=== PATIENT | female | born 1965 | race Caucasian/White ===

== ENCOUNTER → 2016-09-25 | Outpatient (CLI) | payer BC ==
--- NOTE | 2016-09-25 15:21 | XR ---
EXAMINATION TYPE: XR abdomen 1V DATE OF EXAM: 09/25/2016 3:16 PM COMPARISON: NONE INDICATION: Hematuria TECHNIQUE: Single view abdomen FINDINGS: There is a normal bowel gas pattern. Psoas margins are normal. No organomegaly is present. Cholecystectomy clips are present. No suspicious mass effect is evident. No suspicious calcifications are evident. Phleboliths are within the pelvis. Metallic piercing at the lower film edge. IMPRESSION: 1. No acute changes to account for gross hematuria.
== END | disposition home or self-care (01) ==
LOC: RADXRMAIN 14:56
PROVIDERS: ATTEND Nurse Practitioner Family
DX: R31.9 Hematuria, unspecified (principal)
CPT/HCPCS: 74000

== ENCOUNTER → 2017-04-01 | Outpatient (CLI) | payer BC ==
--- NOTE | 2017-04-02 08:50 | MM ---
Reason for exam: screening (asymptomatic). Last mammogram was performed 1 year ago. History: Patient is postmenopausal. Benign excisional biopsy of the left breast, January 2011. Physical Findings: A clinical breast exam by your physician is recommended on an annual basis and results should be correlated with mammographic findings. MG 3D Screening Mammo W/Cad Bilateral CC and MLO view(s) were taken. Prior study comparison: March 24, 2016, bilateral MG 3d screening mammo w/cad. June 15, 2015, left breast MG 3d diag mammo w/cad LT. There are scattered fibroglandular densities. There is no discrete abnormality. No significant changes when compared with prior studies. ASSESSMENT: Negative, BI-RAD 1 RECOMMENDATION: Routine screening mammogram of both breasts in 1 year.
== END | disposition home or self-care (01) ==
LOC: RADMAMWWP 11:07
PROVIDERS: ATTEND Obstetrics & Gynecology
DX: Z12.31 Encounter for screening mammogram for malignant neoplasm of breast (principal)
CPT/HCPCS: 77063; G0202

== ENCOUNTER → 2017-07-06 | Outpatient (CLI) | payer BC ==
--- NOTE | 2017-07-06 17:51 | XR ---
EXAMINATION TYPE: XR hand complete LT DATE OF EXAM: 07/06/2017 COMPARISON: NONE HISTORY: 51-year-old female other bursal cyst, bump on second left PIP joint TECHNIQUE: 3 views FINDINGS: No acute fracture, subluxation, or dislocation. Joint spaces throughout are maintained. No periostitis or osteolysis. IMPRESSION: No acute osseous abnormality seen.
== END | disposition home or self-care (01) ==
LOC: RADXRMAIN 13:49
PROVIDERS: ATTEND Nurse Practitioner Family
DX: M71.342 Other bursal cyst, left hand (principal)

== ENCOUNTER → 2018-03-24 | Outpatient (CLI) | payer BC ==
--- NOTE | 2018-03-24 14:52 | US ---
EXAMINATION TYPE: US venous doppler duplex LE LT DATE OF EXAM: 03/24/2018 2:41 PM COMPARISON: NONE CLINICAL HISTORY: M79.662 PAIN IN LT LOWER LEG. Pt states swelling/tightness left leg SIDE PERFORMED: Left TECHNIQUE: The lower extremity deep venous system is examined utilizing real time linear array sonog ivett with graded compression, doppler sonography and color-flow sonography. VESSELS IMAGED: External Iliac Vein (EIV) Common Femoral Vein Deep Femoral Vein Greater Saphenous Vein * Femoral Vein Popliteal Vein Small Saphenous Vein * Proximal Calf Veins (* superficial vessels) Left Leg: Negative for DVT Results called to Nelia at Dr's office at time of exam Grayscale, color doppler, spectral doppler imaging performed of the deep veins of the left lower extr emity. There is normal flow, compressibility, vascular waveforms. IMPRESSION: No ultrasound evidence for acute DVT in the left lower extremity.
== END | disposition home or self-care (01) ==
LOC: RADUSWWP 14:24
PROVIDERS: ATTEND Family Medicine
DX: M79.662 Pain in left lower leg (principal)

== ENCOUNTER → 2018-04-29 | Outpatient (CLI) | payer BC ==
--- NOTE | 2018-04-29 14:09 | MM ---
Reason for exam: screening (asymptomatic). Last mammogram was performed 1 year and 1 month ago. History: Patient is postmenopausal. Benign excisional biopsy of the left breast, January 2011. Took hormonal contraceptives for 10 years. Physical Findings: A clinical breast exam by your physician is recommended on an annual basis and results should be correlated with mammographic findings. MG 3D Screening Mammo W/Cad Bilateral CC and MLO view(s) were taken. Prior study comparison: April 01, 2017, bilateral MG 3d screening mammo w/cad. March 24, 2016, bilateral MG 3d screening mammo w/cad. The breast tissue is heterogeneously dense. This may lower the sensitivity of mammography. There is no discrete abnormality. ASSESSMENT: Negative, BI-RAD 1 RECOMMENDATION: Routine screening mammogram of both breasts in 1 year.
== END | disposition home or self-care (01) ==
LOC: RADMAMWWP 07:24
PROVIDERS: ATTEND Family Medicine
DX: Z12.31 Encounter for screening mammogram for malignant neoplasm of breast (principal)
CPT/HCPCS: 77063; 77067

== ENCOUNTER → 2019-05-05 | Outpatient (CLI) | payer OTHER ==
--- NOTE | 2019-05-06 13:56 | MM ---
Reason for exam: screening (asymptomatic). Last mammogram was performed 1 year ago. History: Patient is postmenopausal. Benign excisional biopsy of the left breast, January 2011. Took hormonal contraceptives for 10 years. Physical Findings: A clinical breast exam by your physician is recommended on an annual basis and results should be correlated with mammographic findings. MG 3D Screening Mammo W/Cad Bilateral CC and MLO view(s) were taken. Prior study comparison: April 29, 2018, bilateral MG 3d screening mammo w/cad. April 01, 2017, bilateral MG 3d screening mammo w/cad. There are scattered fibroglandular densities. No significant changes when compared with prior studies. ASSESSMENT: Benign, BI-RAD 2 RECOMMENDATION: Routine screening mammogram of both breasts in 1 year.
== END | disposition home or self-care (01) ==
LOC: RADMAMWWP 09:00
PROVIDERS: ATTEND Obstetrics & Gynecology
DX: Z12.31 Encounter for screening mammogram for malignant neoplasm of breast (principal)
CPT/HCPCS: 77063; 77067

== ENCOUNTER 2019-07-29 09:47 | Emergency (ER) | payer OTHER ==
[2019-07-29 09:53] VITALS: TEMP 97.8
[2019-07-29] MEDS ORDERED: SODIUM CHLORIDE 0.9% 1,000 ML IV STA ×2 (10:25)
--- NOTE | 2019-07-29 10:27 | ED ---
Abdominal Pain HPI - General Chief Complaint: Abdominal Pain Stated Complaint: lower right stabbing pain Time Seen by Provider: 07/29/19 10:01 Source: patient Mode of arrival: ambulatory Limitations: no limitations - History of Present Illness Initial Comments: 53-year-old female presenting for right lower quadrant abdominal pain. Patient states she had a cramping pain. He can the right lower quadrant she states that has to days as the more sharp in nature increasing with movement or any activity. Patient presented to her primary care provider office today and was sent to the emergency department to rule out appendicitis. Patient's been eating denies fevers. Denies vomiting diarrhea or nausea. Patient denies any vaginal bleeding. Remaining review of system negative upon arrival patient appears well signs of acute distress. - Related Data Home Medications Medication Instructions Recorded Confirmed Cranberry Fruit Extract [Cranberry] 500 mg PO DAILY 06/11/16 07/29/19 Evening Needham Oil 500 mg PO DAILY 06/11/16 07/29/19 Cholecalciferol (Vitamin D3) 2,000 unit PO DAILY 07/29/19 07/29/19 [Vitamin D3] Furosemide [Lasix] 20 mg PO DAILY PRN 07/29/19 07/29/19 Naproxen [Naprosyn] 500 mg PO Q12HR PRN 07/29/19 07/29/19 Potassium 99 mg PO DAILY 07/29/19 07/29/19 Turmeric Root Extract [Turmeric] 500 mg PO DAILY 07/29/19 07/29/19 Previous Rx's Medication Instructions Recorded Metoprolol Succinate [Toprol XL] 25 mg PO DAILY #30 tab 06/13/16 Allergies Allergy/AdvReac Type Severity Reaction Status Date / Time morphine AdvReac Severe Itching Verified 07/29/19 11:20 latex AdvReac dry skin Verified 07/29/19 11:20 scopolamine AdvReac Unknown Verified 07/29/19 11:20 Review of Systems ROS Statement: Those systems with pertinent positive or pertinent negative responses have been documented in the HPI. ROS Other: All systems not noted in ROS Statement are negative. Past Medical History Past Medical History: Hypertension Additional Past Medical History / Comment(s): varicose veins, raynauds History of Any Multi-Drug Resistant Organisms: None Reported Past Surgical History: Section, Cholecystectomy, Tubal Ligation Additional Past Surgical History / Comment(s): deviated septum, colonoscopy Past Anesthesia/Blood Transfusion Reactions: Motion Sickness Additional Past Anesthesia/Blood Transfusion Reaction / Comment(s): Pt report reaction to Scopolamine patches. Past Psychological History: No Psychological Hx Reported Smoking Status: Never smoker Past Alcohol Use History: Occasional Past Drug Use History: None Reported - Past Family History Father Family Medical History: Diabetes Mellitus Mother Family Medical History: Hyperlipidemia Additional Family Medical History / Comment(s): Alzhimiers. General Exam - General Exam Comments Initial Comments: General: The patient is awake and alert, in no distress Eye: +3 mm pupils are equal, round and reactive to light, extra-ocular movements are intact. No nystagmus. There is normal conjunctiva bilaterally. No signs of icterus. Ears, nose, mouth and throat: There are moist mucous membranes and no oral lesions. Neck: The neck is supple, there is no tenderness or JVD. Cardiovascular: There is a regular rate and rhythm. No murmur, rub or gallop is appreciated. Respiratory: Lungs are clear to auscultation, respirations are non-labored, breath sounds are equal. No wheezes, stridor, rales, or rhonchi. Gastrointestinal: Soft, non-distended, RLQ tenderness to palpation of the abdomen without masses or organomegaly noted. There is no rebound or guarding present. Musculoskeletal: Normal ROM, no tenderness. Strength 5/5. Sensation intact. Radial pulses equal bilaterally 2+. Neurological: A&O x 3. CN II-XII intact grossly, There are no obvious motor or sensory deficits. Coordination appears grossly intact. Speech is normal. Skin: Skin is warm and dry and no rashes or lesions are noted. Psychiatric: Cooperative, appropriate mood & affect, normal judgment. Limitations: no limitations Course Vital Signs 07/29/19 07/29/19 09:50 13:46 Temperature 97.8 F Pulse Rate 77 96 Respiratory 18 20 Rate Blood Pressure 169/102 147/88 O2 Sat by Pulse 100 100 Oximetry Medical Decision Making - Medical Decision Making 53-year-old female presenting today for chief complaint of right lower quadrant tenderness. CT negative for appendicitis although demonstrated ovarian cyst. With skin free fluid in the pelvis. Ultram obtained at this time revealed complex right ovarian cyst. Patient does not appears in distress. Laboratory studies stable. Case discussed [facility] Dr. Romero including imaging findings I discussed the nature of abnormalities with patient we feel patient is stable for discharge with outpatient follow-up with Dr. Sosa. Patient agreeable to care plan and discharge. Return parameters discussed at length. - Lab Data Result diagrams: 07/29/19 10:55 07/29/19 10:55 Lab Results 07/29/19 07/29/19 07/29/19 Range/Units 10:45 10:55 10:55 WBC 9.4 (3.8-10.6) k/uL RBC 4.46 (3.80-5.40) m/uL Hgb 14.1 (11.4-16.0) gm/dL Hct 41.3 (34.0-46.0) % MCV 92.6 (80.0-100.0) fL MCH 31.5 (25.0-35.0) pg MCHC 34.0 (31.0-37.0) g/dL RDW 12.9 (11.5-15.5) % Plt Count 265 (150-450) k/uL Neutrophils % 77 % Lymphocytes % 17 % Monocytes % 4 % Eosinophils % 1 % Basophils % 0 % Neutrophils # 7.3 (1.3-7.7) k/uL Lymphocytes # 1.6 (1.0-4.8) k/uL Monocytes # 0.4 (0-1.0) k/uL Eosinophils # 0.1 (0-0.7) k/uL Basophils # 0.0 (0-0.2) k/uL Sodium 138 (137-145) mmol/L Potassium 4.6 (3.5-5.1) mmol/L Chloride 104 (98-107) mmol/L Carbon Dioxide 24 (22-30) mmol/L Anion Gap 10 mmol/L BUN 10 (7-17) mg/dL Creatinine 0.71 (0.52-1.04) mg/dL Est GFR (CKD-EPI)AfAm >90 (>60 ml/min/1.73 sqM) Est GFR (CKD-EPI)NonAf >90 (>60 ml/min/1.73 sqM) Glucose 129 H (74-99) mg/dL Calcium 9.9 (8.4-10.2) mg/dL Total Bilirubin 1.1 (0.2-1.3) mg/dL AST 32 (14-36) U/L ALT 34 (4-34) U/L Alkaline Phosphatase 51 (38-126) U/L Total Protein 8.4 H (6.3-8.2) g/dL Albumin 4.8 (3.5-5.0) g/dL Lipase 88 (23-300) U/L Urine Color Light Yellow Urine Appearance Clear (Clear) Urine pH 6.0 (5.0-8.0) Ur Specific Fowler 1.002 (1.001-1.035) Urine Protein Negative (Negative) Urine Glucose (UA) Negative (Negative) Urine Ketones Negative (Negative) Urine Blood Negative (Negative) Urine Nitrite Negative (Negative) Urine Bilirubin Negative (Negative) Urine Urobilinogen <2.0 (<2.0) mg/dL Ur Leukocyte Esterase Negative (Negative) Disposition Clinical Impression: Right ovarian cyst, RLQ abdominal pain Disposition: HOME SELF-CARE Condition: Good Instructions (If sedation given, give patient instructions): Ovarian Cyst (ED), Ruptured Ovarian Cyst (ED) Additional Instructions: Please use medication as discussed. Please follow-up with family doctor in the next 2 days, and your OBGYN Dr. Sosa. Please return to emergency room if the symptoms increase or worsen or for any other concerns. Is patient prescribed a controlled substance at d/c from ED?: No Referrals: Ayesha Snyder MD [Primary Care Provider] - 1-2 days Rhea Sosa DO [Doctor of Osteopathic Medicine] - 1-2 days Time of Disposition: 13:56
[2019-07-29 11:12] LABS: Basophils % (A) 0 %; Eosinophils # (A) 0.1 k/uL (0-0.7); Eosinophils % (A) 1 %; HCT 41.3 % (34.0-46.0); HGB 14.1 gm/dL (11.4-16.0); Lymphocytes # (A) 1.6 k/uL (1.0-4.8); Lymphocytes % (A) 17 %; MCH 31.5 pg (25.0-35.0); MCV 92.6 fL (80.0-100.0); Mean Platelet Volume 8.7; Monocytes # (A) 0.4 k/uL (0-1.0); Monocytes % (A) 4 %; Neutrophils # (A) 7.3 k/uL (1.3-7.7); Neutrophils % (A) 77 %; Platelet Count 265 k/uL (150-450); RBC 4.46 m/uL (3.80-5.40); RDW 12.9 % (11.5-15.5); WBC 9.4 k/uL (3.8-10.6)
[2019-07-29 11:13] LABS: Appearance,Urine Clear (Clear); Bilirubin,Urine Negative (Negative); Blood,Urine Negative (Negative); Color,Urine Light Yellow; Glucose,Urine (UA) Negative (Negative); Ketones,Urine Negative (Negative); Leukocyte Esterase,Urine Negative (Negative); Nitrite,Urine Negative (Negative); Protein,Urine Negative (Negative); Specific Gravity,Urine 1.002 (1.001-1.035); Urobilinogen,Urine <2.0 mg/dL (<2.0)
[2019-07-29 11:18] LABS: ALT 34 U/L (4-34); AST 32 U/L (14-36); African American GFR (CKD) >90 (>60 ml/min/1.73 sqM); Albumin 4.8 g/dL (3.5-5.0); Alkaline Phosphatase 51 U/L (38-126); Anion Gap 10 mmol/L; Blood Urea Nitrogen 10 mg/dL (7-17); Calcium 9.9 mg/dL (8.4-10.2); Carbon Dioxide 24 mmol/L (22-30); Chloride 104 mmol/L (98-107); Glucose 129 mg/dL (74-99); Non-African American GFR(CKD) >90 (>60 ml/min/1.73 sqM); Potassium 4.6 mmol/L (3.5-5.1); Sodium 138 mmol/L (137-145); Total Bilirubin 1.1 mg/dL (0.2-1.3); Total Protein 8.4 g/dL (6.3-8.2)
--- NOTE | 2019-07-29 12:11 | CT ---
EXAMINATION TYPE: CT abdomen pelvis w con DATE OF EXAM: 07/29/2019 COMPARISON: HISTORY: Pelvic pain CT DLP: 1113.9 mGycm CONTRAST: CT scan of the abdomen and pelvis is performed without Oral Contrast and with IV Contrast, patient in jected with 100 mL of Isovue 300. FINDINGS: LUNG BASES-: No visible nodule. No infiltrate. LIVER/GB: Hepatic steatosis noted gallbladder surgically absent. No space occupying hepatic lesion. Biliary tree is of normal caliber. PANCREAS: No inflammation. No distinct mass. SPLEEN: No splenic enlargement. No lesion seen. ADRENALS: No nodule. No thickening. KIDNEYS/BLADDER: No hydronephrosis. No nephrolithiasis. No distinct renal mass. Urinary bladder g rossly unremarkable. BOWEL: Normal appendix. Normal bowel caliber. No inflammation. GENITAL ORGANS: Small amount of free fluid adjacent to the right ovary as well as within the right l ower quadrant may be related to recently ruptured ovarian cyst. No adnexal masses are seen at this ti me. 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 LYMPH NODES: No greater than 1cm abdominal or pelvic lymph nodes are appreciated. AORTA: No significant abnormality. OSSEOUS STRUCTURES: No significant abnormality is seen. OTHER: No significant additional abnormality is seen. IMPRESSION: 1. Small amount of free fluid adjacent to the right ovary as well as within the right lower quadrant may be related to recently ruptured ovarian cyst. 2. Normal appendix. 3. Fatty liver.
--- NOTE | 2019-07-29 13:42 | US ---
EXAMINATION TYPE: US transvaginal DATE OF EXAM: 07/29/2019 COMPARISON: CT CLINICAL HISTORY: rlq pain. RLQ pain x 1 week; last bowel movement 4 days ago; tubal ligation, C Sect ion x 1, endometrial ablation age 48; TECHNIQUE: Transvaginal (TV). Transvaginal sonographic images were medically necessary since empty b ladder noted. Date of LMP: age 48 EXAM MEASUREMENTS: Uterus: 9.4 x 6.5 x 4.8 cm Endometrial Stripe: 0.95 cm upper right endometrium and fluid filled endometrium upper left Right Ovary: 4.5 x 3.3 x 3.7 cm Left Ovary: 2.7 x 1.7 x 1.5 cm 1. Uterus: Anteverted; multiple Nabothian Cysts in cervix with largest=1.3 x 1.2 x 0.8cm; multiple o su/round hypoechoic solid masses (uterine fibroids) with largest mid upper left = 1.3 x 1.3 x 1.3cm 2. Endometrium: bicornuate appearance with abnormally thickened right endometrium and fluid filled l eft endometrium =2.1 x 2.1 x 2.6cm with thin endometrial wall. 3. Right Ovary: enlarged with large complex cyst 2.8 x 2.8 x 3.0cm and containing mural wall change s 4. Left Ovary: couple of simple cysts with larger = 1.2 x 1.2 x 1.0cm Spectral, color and waveform Doppler imaging shows good arterial and venous flow within the ovaries ; there is no evidence for ovarian torsion. 5. Bilateral Adnexa: wnl 6. Posterior cul-de-sac: small amount of free fluid = 1.5 x 3.4 x 1.5cm. IMPRESSION: 1. Endometrium may have a bicornuate appearance or a thick partial septum. MRI is more sensitive for better delineation. 2. Complex cystic area within the right ovary measuring roughly 2.8 cm in diameter.
[2019-07-29 13:49] VITALS: BP 147/88; PULSE 96; RESP 20
[2019-07-29] MEDS ORDERED: KETOROLAC 30 MG/ML 1 ML VIAL IVP STA (14:18)
== END 2019-07-29 14:26 | disposition home or self-care (01) ==
LOC: EC 09:47
DX: N83.201 Unspecified ovarian cyst, right side (principal); I10 Essential (primary) hypertension; Z88.5 Allergy status to narcotic agent; Z88.8 Allergy status to other drugs, medicaments and biological substances; Z91.040 Latex allergy status; Z79.899 Other long term (current) drug therapy; Z90.49 Acquired absence of other specified parts of digestive tract; Z98.51 Tubal ligation status
CPT/HCPCS: 36415; 80053; 83690; 85025; 81003; 87040; 93975; 76830; 74177; 99284; 96374; 96361 ×3; J1885; Q9967

== ENCOUNTER → 2020-05-09 | Outpatient (CLI) | payer OTHER ==
--- NOTE | 2020-05-10 11:12 | MM ---
Reason for exam: screening (asymptomatic). Last mammogram was performed 1 year ago. History: Patient is postmenopausal. Benign excisional biopsy of the left breast, January 2011. Took hormonal contraceptives for 10 years. Taking estrogen for 7 months. Physical Findings: A clinical breast exam by your physician is recommended on an annual basis and results should be correlated with mammographic findings. MG 3D Screening Mammo W/Cad Bilateral CC and MLO view(s) were taken. Prior study comparison: May 05, 2019, bilateral MG 3d screening mammo w/cad. April 29, 2018, bilateral MG 3d screening mammo w/cad. There are scattered fibroglandular densities. There is no discrete abnormality. No significant changes when compared with prior studies. ASSESSMENT: Negative, BI-RAD 1 RECOMMENDATION: Routine screening mammogram of both breasts in 1 year.
== END | disposition home or self-care (01) ==
LOC: RADMAMWWP 09:54
PROVIDERS: ATTEND Obstetrics & Gynecology
DX: Z12.31 Encounter for screening mammogram for malignant neoplasm of breast (principal)
CPT/HCPCS: 77063; 77067

== ENCOUNTER → 2021-06-06 | Outpatient (CLI) | payer BC ==
--- NOTE | 2021-06-10 10:23 | MM ---
Reason for exam: screening (asymptomatic). Last mammogram was performed 1 year and 1 month ago. History: Patient is postmenopausal. Benign excisional biopsy of the left breast, January 2011. Took hormonal contraceptives for 10 years. Taking estrogen for 7 months. Physical Findings: A clinical breast exam by your physician is recommended on an annual basis and results should be correlated with mammographic findings. MG 3D Screening Mammo W/Cad Bilateral CC and MLO view(s) were taken. Prior study comparison: May 09, 2020, bilateral MG 3d screening mammo w/cad. May 05, 2019, bilateral MG 3d screening mammo w/cad. April 29, 2018, bilateral MG 3d screening mammo w/cad. There are scattered fibroglandular densities. No significant changes when compared with prior studies. ASSESSMENT: Negative, BI-RAD 1 RECOMMENDATION: Routine screening mammogram of both breasts in 1 year.
== END | disposition home or self-care (01) ==
LOC: RADMAMWWP 12:07
PROVIDERS: ATTEND Family Medicine
DX: Z12.31 Encounter for screening mammogram for malignant neoplasm of breast (principal)
CPT/HCPCS: 77063; 77067

== ENCOUNTER → 2021-08-21 | Outpatient (CLI) | payer OTHER ==
--- NOTE | 2021-08-21 10:43 | BD ---
EXAMINATION TYPE: Axial Bone Density DATE OF EXAM: 08/21/2021 COMPARISON: Prior DEXA bone scan 2015 CLINICAL HISTORY: Postmenopausal female Height: 61 Weight: 150.6 FRAX RISK QUESTIONS: Alcohol (3 or more units per day): no Family History (Parent hip fracture): no Glucocorticoids (More than 3mos): no (Ex: prednisone, prednisolone, methylprednisolone, dexamethasone, and hydrocortisone). History of Fracture in Adulthood: no Secondary Osteoporosis: 1. Type 1 Diabetes: no 2. Hyperthyroidism: no 3. Menopause before 45: no 4. Malnutrition: no 5. Chronic liver disease: no Rheumatoid Arthritis: no Current Tobacco Use: no RISK FACTORS HISTORY OF: Surgery to Spine/Hip(right/left)/Wrist (right/left): no Family History of Osteoporosis: no Active: yes Diet low in dairy products/other sources of calcium: yes Postmenopausal woman: yes Take estrogen and/or progesterone medications: yes How lon years Lost more than 2 inches in height since high school: no MEDICATIONS: estrogen, blood pressure med Additional History: EXAM MEASUREMENTS: Bone mineral densitometry was performed using the [employer] System. Bone mineral density as measured about the Lumbar spine is: ----- L1-L4(G/cm2): 1.325 T Score Values are as follows: ----- L2: 0.7 ----- L3: 1.7 ----- L4: 1.7 ----- L1-L4: 1.2 Bone mineral density has: decreased -0.9 % since study of: 03.24.2016 Bone mineral density about the R hip (g/cm2): 1.018 Bone mineral density about the L hip (g/cm2): 1.079 T Score values are as follows: -----R Neck: -0.1 -----L Neck: 0.3 -----R Total: 0.0 -----L Total: 0.0 Bone mineral density has: decreased -7.5 % since study of: 03.24.2016 IMPRESSION: Normal (Values between +1 and -1 indicate normal bone mass). Consider repeating this study in 5 year s or sooner if there is some new clinical indication. NOTE: T-SCORE=SD OF THE YOUNG ADULT MEAN.
== END | disposition home or self-care (01) ==
LOC: RADBDWWP 08:33
PROVIDERS: ATTEND Obstetrics & Gynecology
DX: N95.1 Menopausal and female climacteric states (principal)
CPT/HCPCS: 77080

== ENCOUNTER → 2022-07-17 | Outpatient (CLI) | payer OTHER ==
--- NOTE | 2022-07-18 08:21 | MM ---
Reason for Exam: Screening (asymptomatic). Last mammogram was performed 1 year(s) and 2 month(s) ago. Patient History: Menarche at age 11. First Full-Term at age 25. Left ovary removed at age 54. Right ovary removed at age 54. Hysterectomy at age 54. Postmenopausal. Patient has history of breast feeding. Currently using Estrogen, for 7 months. Patient used Hormonal Contraceptives for 10 years. 01/2011, Benign Excisional Biopsy on the left side. Risk Values: Erin 5 year model risk: 1.7%. NCI Lifetime model risk: 10.2%. Prior Study Comparison: 04/01/2017 Bilateral Screening Mammogram, [facility]. 04/29/2018 Bilateral Screening Mammogram, [facility]. 05/05/2019 Bilateral Screening Mammogram, [facility]. 05/09/2020 Bilateral Screening Mammogram, [facility]. 06/06/2021 Bilateral Screening Mammogram, [facility]. Tissue Density: There are scattered fibroglandular densities. Findings: Analyzed By CAD. There is no suspicious group of microcalcifications or new suspicious mass in either breast. Overall Assessment: Negative, BI-RAD 1 Management: Screening Mammogram of both breasts in 1 year. A clinical breast exam by your physician is recommended on an annual basis and results should be correlated with mammographic findings. Electronically signed and approved by: James Dean M.D.
== END | disposition home or self-care (01) ==
LOC: RADMAMWWP 07:41
PROVIDERS: ATTEND Obstetrics & Gynecology
DX: Z12.31 Encounter for screening mammogram for malignant neoplasm of breast (principal); Z78.0 Asymptomatic menopausal state; Z98.890 Other specified postprocedural states
CPT/HCPCS: 77063; 77067

== ENCOUNTER 2023-03-03 08:49 | Day surgery (SDC) | payer OTHER ==
[2023-03-03 09:09] VITALS: TEMP 97.2
[2023-03-03] MEDS ORDERED: ONDANSETRON 4 MG/2 ML VIAL IVP PRN (09:12)
[2023-03-03] MEDS ORDERED: LIDOCAINE 1% (10MG/ML) FOR IV START INTRADERMA PRN (09:12)
[2023-03-03] MEDS ORDERED: LACTATED RINGERS 1,000 ML IV SCH (09:12)
[2023-03-03] MEDS ORDERED: LACTATED RINGERS 1,000 ML IV ONE (09:12)
[2023-03-03] MEDS ORDERED: ONDANSETRON 4 MG/2 ML VIAL IVP ONE (09:13)
[2023-03-03] MEDS ORDERED: PROPOFOL 10 MG/ML 20 ML VIAL IV ONE (09:30)
--- NOTE | 2023-03-03 09:40 | P.GSHP ---
History of Present Illness H&P Date: 03/03/23 Chief Complaint: Screening, history of polyps 57-year-old female here today for colonoscopy. Last colonoscopy over 5 years ago. Patient with history of colon polyps. No bowel complaints. Past Medical History Past Medical History: GERD/Reflux, Hypertension Additional Past Medical History / Comment(s): Routine colonoscopy. Family hx colon cancer. varicose veins, raynauds History of Any Multi-Drug Resistant Organisms: None Reported Past Surgical History: Section, Cholecystectomy, Hysterectomy, Tubal Ligation Additional Past Surgical History / Comment(s): deviated septum, colonoscopy Past Anesthesia/Blood Transfusion Reactions: Motion Sickness, Postoperative Nausea & Vomiting (PONV) Additional Past Anesthesia/Blood Transfusion Reaction / Comment(s): Pt report reaction to Scopolamine patches. Zofran works well Smoking Status: Never smoker - Past Family History Father Family Medical History: Diabetes Mellitus Additional Family Medical History / Comment(s): Father is . Mother Family Medical History: Dementia, Hyperlipidemia Additional Family Medical History / Comment(s): Alzhimiers. Medications and Allergies Home Medications Medication Instructions Recorded Confirmed Type Evening Lerna Oil 500 mg PO QAM 06/11/16 02/26/23 History Cholecalciferol (Vitamin D3) 2,000 unit PO QAM 07/29/19 03/03/23 History [Vitamin D3] Naproxen [Naprosyn] 500 mg PO Q12HR PRN 07/29/19 02/26/23 History Turmeric Root Extract [Turmeric] 500 mg PO QAM 07/29/19 02/26/23 History Metoprolol Succinate [Toprol XL] 25 mg PO QAM 02/26/23 03/03/23 History Multivit-Min/Folic Acid/Biotin 133.3 mcg PO QAM 02/26/23 02/26/23 History [Hair, Skin and Nails Softgel] estradioL 0.25 mg PO QAM 02/26/23 03/03/23 History Allergies Allergy/AdvReac Type Severity Reaction Status Date / Time morphine AdvReac Severe Itching Verified 03/03/23 09:01 latex AdvReac dry skin Verified 03/03/23 09:01 scopolamine AdvReac Nausea Verified 03/03/23 09:01 Surgical - Exam Vital Signs Temp Pulse Resp BP Pulse Ox 97.2 F L 72 16 138/77 99 07/25/23 09:08 03/03/23 09:08 03/03/23 09:08 03/03/23 09:08 03/03/23 09:08 Physical exam: General: Well-developed, well-nourished HEENT: Normocephalic, sclerae nonicteric Abdomen: Nontender, nondistended Extremities: No edema Neuro: Alert and oriented Assessment and Plan (1) Colon cancer screening Narrative/Plan: Will proceed with colonoscopy at this time. Current Visit: Yes Status: Acute Code(s): Z12.11 - ENCOUNTER FOR SCREENING FOR MALIGNANT NEOPLASM OF COLON SNOMED Code(s): 998334348
--- NOTE | 2023-03-03 09:51 | P.PCN ---
Date of Procedure: 03/03/23 Procedure(s) Performed: PREOPERATIVE DIAGNOSIS: Colon cancer screening with history of polyps POSTOPERATIVE DIAGNOSIS: Normal exam PROCEDURE: Colonoscopy ANESTHESIA: MAC SURGEON: Valdemar Snyder M.D. SPECIMENS: None ENDOSCOPIC PROCEDURE: The patient was placed on the endoscopy table in the left decubitus position. The Olympus colonoscope was inserted into the anus and passed under direct visualization to the base of the cecum. The appendiceal orifice was visualized. From that point the scope was slowly withdrawn inspecting all surfaces carefully. There were no neoplastic inflammatory or polypoid lesions throughout the cecum, ascending, transverse, descending, sigmoid and rectum. There was no visible diverticulosis noted. Digital rectal examination was normal. The patient was taken to the recovery room in stable condition per anesthesia guidelines. RECOMMENDATIONS: Resume diet. Repeat colonoscopy 5-7 years.
[2023-03-03 09:59] VITALS: RESP 18
[2023-03-03 10:09] VITALS: BP 123/84; PULSE 68
== END 2023-03-03 10:37 | disposition home or self-care (01) ==
LOC: ORWHC2ENDO 08:49
PROVIDERS: ATTEND Surgery
DX: Z12.11 Encounter for screening for malignant neoplasm of colon (principal); K21.9 Gastro-esophageal reflux disease without esophagitis; I10 Essential (primary) hypertension; Z80.0 Family history of malignant neoplasm of digestive organs; Z98.891 History of uterine scar from previous surgery; Z90.710 Acquired absence of both cervix and uterus; Z98.51 Tubal ligation status; Z90.49 Acquired absence of other specified parts of digestive tract; Z83.3 Family history of diabetes mellitus; Z83.49 Family history of other endocrine, nutritional and metabolic diseases; Z86.010 Personal history of colon polyps; Z88.5 Allergy status to narcotic agent; Z79.899 Other long term (current) drug therapy
CPT/HCPCS: 45378; J2405; J2704

== ENCOUNTER → 2023-07-20 | Outpatient (CLI) | payer OTHER ==
--- NOTE | 2023-07-21 15:47 | MM ---
Reason for Exam: Screening (asymptomatic). Last screening mammogram was performed 12 month(s) ago. Patient History: Menarche at age 11. First Full-Term at age 25. Left ovary removed at age 54. Right ovary removed at age 54. Hysterectomy at age 54. Postmenopausal. Patient has history of breast feeding. Currently using Estrogen, for 7 months. Patient used Hormonal Contraceptives for 10 years. 01/2011, Benign Excisional Biopsy on the left side. Risk Values: Erin 5 year model risk: 1.8%. NCI Lifetime model risk: 10.0%. Prior Study Comparison: 05/09/2020 Bilateral Screening Mammogram, [facility]. 06/06/2021 Bilateral Screening Mammogram, [facility]. 07/17/2022 Bilateral MG 3D screening mammo w/cad, [facility]. Tissue Density: There are scattered fibroglandular densities. Findings: Analyzed By CAD. Pattern appears symmetrical and stable. No significant interval change is evident. No suspicious groups of microcalcifications, spiculated or lobular masses, architectural distortion or other secondary signs of malignancy are mammographically apparent. Overall Assessment: Benign, BI-RAD 2 Management: Screening Mammogram of both breasts in 1 year. A negative mammogram report should not preclude additional follow up of suspicious palpable abnormalities. Patient should continue monthly self breast exam. A clinical breast exam by your physician is recommended on an annual basis and results should be correlated with mammographic findings. Electronically signed and approved by: Joe Garza D.O. Radiologis
== END | disposition home or self-care (01) ==
LOC: RADMAMWWP 07:24
PROVIDERS: ATTEND Obstetrics & Gynecology
DX: Z12.31 Encounter for screening mammogram for malignant neoplasm of breast (principal); Z78.0 Asymptomatic menopausal state; Z92.0 Personal history of contraception
CPT/HCPCS: 77063; 77067

== ENCOUNTER → 2024-06-21 | Outpatient (CLI) | payer OTHER ==
--- NOTE | 2024-06-27 11:26 | MM ---
Reason for Exam: Screening (asymptomatic). Last screening mammogram was performed 11 month(s) ago. Patient History: Menarche at age 11. First Full-Term at age 25. Left ovary removed at age 54. Right ovary removed at age 54. Hysterectomy at age 54. Postmenopausal. Patient has history of breast feeding. Currently using Estrogen, for 7 months. Patient used Hormonal Contraceptives for 10 years. 01/2011, Benign Excisional Biopsy on the left side. Risk Values: Erin 5 year model risk: 1.8%. NCI Lifetime model risk: 9.8%. Prior Study Comparison: 06/06/2021 Bilateral Screening Mammogram, [facility]. 07/17/2022 Bilateral MG 3D screening mammo w/cad, [facility]. 07/20/2023 Bilateral MG 3D screening mammo w/cad, [facility]. Tissue Density: There are scattered areas of fibroglandular density. Findings: Analyzed By CAD. There is no suspicious group of microcalcifications or new suspicious mass in either breast. Overall Assessment: Negative, BI-RAD 1 Management: Screening Mammogram of both breasts in 1 year. . Patient should continue monthly self-breast exams. A clinical breast exam by your physician is recommended on an annual basis. This exam should not preclude additional follow-up of suspicious palpable abnormalities. Note on Erin scores and lifetime risk: 1. A Erin score greater than 3% is considered moderate risk. If this is the case, consider specialist referral to assess eligibility for a risk reducing agent. 2. If overall lifetime risk for the development of breast cancer is 20% or higher, the patient may qualify for future screening with alternating mammogram and breast MRI. [facility], , 06/27/2024 11:23 AM. Electronically signed and approved by: Byron Villafana M.D. Radiologis
== END | disposition home or self-care (01) ==
LOC: RADMAMWWP 08:04
PROVIDERS: ATTEND Internal Medicine
DX: Z12.31 Encounter for screening mammogram for malignant neoplasm of breast (principal); R92.323 Mammographic fibroglandular density, bilateral breasts; M85.851 Other specified disorders of bone density and structure, right thigh; Z78.0 Asymptomatic menopausal state
CPT/HCPCS: 77063; 77067; 77080

== ENCOUNTER → 2024-08-24 | Outpatient (CLI) | payer OTHER ==
--- NOTE | 2024-08-24 11:52 | NM ---
EXAMINATION TYPE: NM stress cardiolite complete DATE OF EXAM: 08/24/2024 COMPARISON: NONE CLINICAL INDICATION: Female, 58 years old with history of Z13.6 Encounter for screening for cardiovas cular d, TECHNIQUE: After the intravenous administration of 10.05 mCi Tc 99m Sestamibi - Cardiolite resting S PECT images acquired 50 minutes post injection. At peak stress 25.7 mCi Tc 99m Sestamibi - Stress images obtained 10 minutes post injection The patient was stressed on a treadmill reaching greater than 85% of predicted maximum heart rate. FINDINGS: No fixed defects are evident No reversible stress defects on Spect images Wall motion is normal Ejection fraction is calculated to be 63 %. IMPRESSION: 1. No stress-induced ischemic changes. [facility], , 08/24/2024 11:50 AM
--- NOTE | 2024-08-24 17:44 | CA ---
Exercise Stress Test Report Name: Elva Manriquez Exam Date: 08/24/2024 09:14 Exam Location: [place] Stress Ht (in): 61 Wt (lb): 185 BSA: 1.83 Ordering Phys: Madelyn Wilson MD Referring Phys: Madelyn Wilson MD Technologist: Paul Louis Age: 58 Gender: F : 1965 Procedure CPT: Indications: Z13.6 ENCOUNTER FOR SCREENING FOR CARDIOVASCULAR D ICD-10 Codes: Patient History: HTN, HYPERCHOLESTEROLEMIA, FAMILY HX OF HEART DISEASE Medications: Meds past 24 hrs: Pretest Chest Pain: STRESS TEST Santana Protocol Exercise Duration (min:sec): 09:[address] Depressions (mm): 0 Angina Score: 0 Martin Score: 9.83 Resting HR (bpm): 81 Peak HR (bpm): 162 Resting BP (mmHg): 122 / 74 Peak BP (mmHg): 160 / 80 MPHR: 161 Target HR: 137 % MPHR: 101 METS: 11.5 Total Dose: Peak Dose: Atropine: Double Product: 00621 BP Response: Stress Termination: MAX EXERTION/TARGET HR Stress Symptoms: NO SYMPTOMS Stress Summary: The patient's target heart rate was achieved, The hemodynamic response to exercise was normal ECG ANALYSIS Resting ECG: Sinus rhythm. Normal conduction. No arrhythmias. Normal repolarization. Stress ECG: No ECG evidence of ischemia with exercise. Ventricular premature contraction. CONCLUSIONS Patient falls into low-risk group (DTS >= +5). This associates the patient with an annual CV mortality <= 0.5%. Exercise capacity very good at >10 METS. Occasional PVCs Normal electrocardiographic response to exercise with no evidence of exercise-induced ischemia Nuclear test results to follow. Dr. Kitty Castillo MD (Electronically Signed) Final Date: 24 August 2024 17:43
== END | disposition home or self-care (01) ==
LOC: RADNMMAIN 07:54
PROVIDERS: ATTEND Internal Medicine
DX: Z13.6 Encounter for screening for cardiovascular disorders (principal)
CPT/HCPCS: 93017; 78452; A9500

== ENCOUNTER → 2025-03-03 | Outpatient (CLI) | payer OTHER ==
--- NOTE | 2025-03-03 08:47 | MM ---
Reason for Exam: Screening (asymptomatic). Last screening mammogram was performed 8 month(s) ago. Patient History: Menarche at age 11. First Full-Term at age 25. Left ovary removed at age 54. Right ovary removed at age 54. Hysterectomy at age 54. Postmenopausal. Patient has history of breast feeding. Estrogen for 7 months. Patient used Hormonal Contraceptives for 10 years. 01/2011, Benign Excisional Biopsy on the left side. Risk Values: Erin 5 year model risk: 1.9%. NCI Lifetime model risk: 9.5%. Prior Study Comparison: 07/17/2022 Bilateral MG 3D screening mammo w/cad, [facility]. 07/20/2023 Bilateral MG 3D screening mammo w/cad, [facility]. 06/21/2024 Bilateral MG 3D screening mammo w/cad, [facility]. Tissue Density: The breasts are almost entirely fatty. Findings: Analyzed By CAD. Right breast: There is no suspicious group of microcalcifications or new suspicious mass. Left breast: There is no suspicious group of microcalcifications or new suspicious mass. Overall Assessment: Negative, BI-RAD 1 Management: Screening Mammogram of both breasts in [address] [facility] will attempt to contact patient to return for supplemental views and ultrasound if indicated. Patient should continue monthly self-breast exams. A clinical breast exam by your physician is recommended on an annual basis. This exam should not preclude additional follow-up of suspicious palpable abnormalities. Note on Erin scores and lifetime risk: 1. A Erin score greater than 3% is considered moderate risk. If this is the case, consider specialist referral to assess eligibility for a risk reducing agent. 2. If overall lifetime risk for the development of breast cancer is 20% or higher, the patient may qualify for future screening with alternating mammogram and breast MRI. [facility], , 03/03/2025 8:43 AM. Electronically signed and approved by: Hardy Hines DO
== END | disposition home or self-care (01) ==
LOC: RADMAMWWP 07:37
PROVIDERS: ATTEND Internal Medicine
DX: Z12.31 Encounter for screening mammogram for malignant neoplasm of breast (principal); R92.313 Mammographic fatty tissue density, bilateral breasts; Z78.0 Asymptomatic menopausal state; Z92.0 Personal history of contraception
CPT/HCPCS: 77063; 77067